=== PATIENT | female | born 1945 | race Caucasian/White ===

== ENCOUNTER 2016-10-13 15:03 | Observation (INO) | payer BC ==
--- NOTE | 2016-10-13 15:31 | EDM.PDOC ---
[id number]: LEFT SIDE OF BODY IS TINGLING Time Seen by Provider: 10/13/16 15:26 Source of Information: Reports: Patient History Limitations: Reports: No Limitations - History of Present Illness INITIAL COMMENTS - FREE TEXT/NARRATIVE: History of present illness: [] Yesterday and today sometime patient's left lateral leg started feeling numb and heavy. The numbness continued throughout the night and into today. About an hour prior to arrival patient was shopping and developed increased tingling in her left leg, left arm and left face. She was with her family member who stated that she just wasn't as fast as normal and she felt that her face was droopy. Patient is currently on Eliquis for anticoagulation for A. fib. Review of systems: As per history of present illness and below otherwise all systems reviewed and negative. Past medical history: As per history of present illness and as reviewed below otherwise noncontributory. Surgical history: As per history of present illness and as reviewed below otherwise noncontributory. Social history: No reported history of drug or alcohol abuse. Family history: As per history of present illness and as reviewed below otherwise noncontributory. Physical exam: Vital signs show blood pressure 175/75, 68, 16, 98.8 General: Well developed, well nourished in NAD HEENT: Atraumatic, normocephalic, pupils reactive, negative for conjunctival pallor or scleral icterus, mucous membranes moist, throat clear, neck supple, nontender, trachea midline. Lungs: Clear to auscultation, breath sounds equal bilaterally, chest nontender. Heart: S1S2, regular, negative for clicks, rubs, or JVD. Abdomen: Soft, nondistended, nontender. Negative for masses or hepatosplenomegaly. Negative for costovertebral tenderness. Pelvis: Stable nontender. Genitourinary: Deferred. Rectal: Deferred. Extremities: Atraumatic, negative for cords or calf pain. Neurovascular unremarkable. Neuro: Awake, alert, oriented. Cranial nerves II through XII unremarkable. No facial droop appreciated at this time Cerebellum unremarkable. Motor and sensory unremarkable throughout. Exam nonfocal. Diagnostics: [] CT negative for bleed or infarct, EKG showing normal sinus rhythm without ischemia Therapeutics: [] Patient is currently on Eliquis Impression: [] TIA Plan: [] Admit for observation Definitive disposition and diagnosis as appropriate pending reevaluation and review of above. - Related Data Allergies Allergy/AdvReac Type Severity Reaction Status Date / Time amoxicillin [From Augmentin] Allergy Hives Verified 10/13/16 17:20 barley Allergy Cannot Verified 10/13/16 17:22 Remember buckwheat Allergy Change Verified 10/13/16 17:22 Mental Status clavulanic acid Allergy Hives Verified 10/13/16 17:20 [From Augmentin] meperidine [From Demerol] Allergy Other Verified 10/13/16 17:22 wheat Allergy Other Verified 10/13/16 17:22 apple cider vinegar Allergy Vomiting Uncoded 10/13/16 17:20 black and white pepper Allergy Other Uncoded 10/13/16 17:22 tape Allergy Itching Uncoded 10/13/16 17:20 ED ROS GENERAL - Review of Systems Review Of Systems: See Below (See history of present illness) ED EXAM, NEURO - Physical Exam Exam: See Below (See history of present illness) Course - Orders/Labs/Meds Orders: Active Orders 24 hr Category Date Time Status Patient Status [ADT] Stat ADT 10/13/16 17:09 Active EKG Documentation Completion [RC] STAT Care 10/13/16 15:57 Active Saline Lock Insert [OM.PC] Stat Oth 10/13/16 15:57 Ordered Labs: Laboratory Tests 10/13/16 10/13/16 10/13/16 Range/Units 16:18 16:18 16:18 WBC 5.23 (4.0-11.0) K/uL RBC 4.22 L (4.30-5.90) M/uL Hgb 12.8 (12.0-16.0) g/dL Hct 38.6 (36.0-46.0) % MCV 91.5 (80.0-98.0) fL MCH 30.3 (27.0-32.0) pg MCHC 33.2 (31.0-37.0) g/dL RDW Std Deviation 44.6 (28.0-62.0) fl RDW Coeff of Oksana 13 (11.0-15.0) % Plt Count 227 (150-400) K/uL MPV 9.20 (7.40-12.00) fL Neut % (Auto) 59.0 (48.0-80.0) % Lymph % (Auto) 25.8 (16.0-40.0) % [place] % (Auto) 11.3 (0.0-15.0) % Eos % (Auto) 3.3 (0.0-7.0) % Baso % (Auto) 0.6 (0.0-1.5) % Neut # (Auto) 3.1 (1.4-5.7) K/uL Lymph # (Auto) 1.4 (0.6-2.4) K/uL [place] # (Auto) 0.6 (0.0-0.8) K/uL Eos # (Auto) 0.2 (0.0-0.7) K/uL Baso # (Auto) 0.0 (0.0-0.1) K/uL Nucleated RBC % 0.0 /100WBC Nucleated RBCs # 0 K/uL INR (0.86-1.11) APTT (18.6-31.3) SEC Sodium 141 (136-146) mmol/L Potassium 4.0 (3.5-5.1) mmol/L Chloride 110 (98-110) mmol/L Carbon Dioxide 22 (21-31) mmol/L BUN 19 (6.0-23.0) mg/dL Creatinine 0.7 (0.6-1.5) mg/dL Est Cr Clr Drug Dosing TNP Estimated GFR (MDRD) > 60.0 ml/min Glucose 104 (60-110) mg/dL POC Glucose (60-110) mg/dL Calcium 8.5 L (8.8-10.8) mg/dL Total Bilirubin 0.6 (0.1-1.5) mg/dL AST 21 (5-40) IU/L ALT 24 (8-54) IU/L Alkaline Phosphatase 81 (40-150) Troponin I < 0.10 (0.0-0.29) NG/ML Total Protein 6.1 (6.0-8.0) g/dL Albumin 4.1 (3.4-4.8) g/dL Globulin 2.0 (2.0-3.5) g/dL Albumin/Globulin Ratio 2.1 (1.3-2.8) 10/13/16 10/13/16 Range/Units 16:18 16:52 WBC (4.0-11.0) K/uL RBC (4.30-5.90) M/uL Hgb (12.0-16.0) g/dL Hct (36.0-46.0) % MCV (80.0-98.0) fL MCH (27.0-32.0) pg MCHC (31.0-37.0) g/dL RDW Std Deviation (28.0-62.0) fl RDW Coeff of Oksana (11.0-15.0) % Plt Count (150-400) K/uL MPV (7.40-12.00) fL Neut % (Auto) (48.0-80.0) % Lymph % (Auto) (16.0-40.0) % [place] % (Auto) (0.0-15.0) % Eos % (Auto) (0.0-7.0) % Baso % (Auto) (0.0-1.5) % Neut # (Auto) (1.4-5.7) K/uL Lymph # (Auto) (0.6-2.4) K/uL [place] # (Auto) (0.0-0.8) K/uL Eos # (Auto) (0.0-0.7) K/uL Baso # (Auto) (0.0-0.1) K/uL Nucleated RBC % /100WBC Nucleated RBCs # K/uL INR 0.96 (0.86-1.11) APTT 26.8 (18.6-31.3) SEC Sodium (136-146) mmol/L Potassium (3.5-5.1) mmol/L Chloride (98-110) mmol/L Carbon Dioxide (21-31) mmol/L BUN (6.0-23.0) mg/dL Creatinine (0.6-1.5) mg/dL Est Cr Clr Drug Dosing Estimated GFR (MDRD) ml/min Glucose (60-110) mg/dL POC Glucose 92 (60-110) mg/dL Calcium (8.8-10.8) mg/dL Total Bilirubin (0.1-1.5) mg/dL AST (5-40) IU/L ALT (8-54) IU/L Alkaline Phosphatase (40-150) Troponin I (0.0-0.29) NG/ML Total Protein (6.0-8.0) g/dL Albumin (3.4-4.8) g/dL Globulin (2.0-3.5) g/dL Albumin/Globulin Ratio (1.3-2.8) Departure - Departure Time of Disposition: 17:25 Disposition: Admitted As Inpatient 64 Condition: good Clinical Impression: TIA (transient ischemic attack) Qualifiers: Transient cerebral ischemia type: unspecified Qualified Code(s): G45.9 - Transient cerebral ischemic attack, unspecified - Discharge Information Referrals: PCP,None [Primary Care Provider] - Forms: ED Department Discharge - My Orders Last 24 Hours: My Active Orders 10/13/16 15:57 EKG Documentation Completion [RC] STAT Saline Lock Insert [OM.PC] Stat 10/13/16 17:09 Patient Status [ADT] Stat - Assessment/Plan Last 24 Hours: My Active Orders 10/13/16 15:57 EKG Documentation Completion [RC] STAT Saline Lock Insert [OM.PC] Stat 10/13/16 17:09 Patient Status [ADT] Stat
[2016-10-13 16:46] LABS: CHLORIDE,CL 110 mmol/L (98-110); SODIUM,NA 141 mmol/L (136-146)
--- NOTE | 2016-10-13 17:09 | CT ---
EXAM DATE: 10/13/16 PATIENT'S AGE: 70 Patient: FERNANDO MADERA Facility: [place], [place] Site . Site : 1945 Study: CT Head STROKE PROTOCOL [id number]/6/[id number] 4:37:55 PM Ordering Physician: Santos Michel Final Report: HISTORY: Pain, stroke, code. TECHNIQUE: The head was scanned in the axial plane at 3 mm intervals without IV contrast. Reconstructed bone windows were obtained as well as sagittal and coronal reconstructions. FINDINGS: The visualized paranasal sinuses and mastoid air cells are well aerated. The calvarium is intact. The ventricles and sulci are acceptable size for age. No intra-axial mass, edema or midline shift is identified. No extra-axial fluid collections are seen. Peter-white differentiation is preserved. IMPRESSION: No acute intracranial pathology or bleed. Report called to Dr Graham 13 October 2016 @ 1641 hours. Dictated by Cassia Herron MD @ 10/13/2016 4:41:19 PM Dictated by: Cassia Herron MD @ 10/13/2016 16:42:12 (Electronic Signature) Report Signed by Proxy. [facility]OSPITALBarrington
--- NOTE | 2016-10-13 17:12 | CR ---
EXAM DATE: 10/13/16 PATIENT'S AGE: 70 Patient: FERNANDO MADERA Facility: [place], [place] Site . Site : 1945 Study: XRay Chest [id number]/[id number] 4:47:56 PM Ordering Physician: Santos Michel Final Report: HISTORY: Possible stroke, numbness. FINDINGS: AP portable chest radiograph demonstrates a normal cardiac silhouette. Pulmonary vasculature is free of cephalization. No consolidation or pleural effusion is seen. There is scoliosis within the thoracic spine. Degenerative changes of the discs. There is degenerative changes seen within the glenohumeral joints. IMPRESSION: No acute cardiopulmonary disease. Dictated by Cassia Herron MD @ 10/13/2016 5:02:54 PM Dictated by: Cassia Herron MD @ 10/13/2016 17:02:58 (Electronic Signature) Report Signed by Proxy. KELLI
[2016-10-13] MEDS ORDERED: Ondansetron 4 MG Tab.DIS PO PRN (18:26)
[2016-10-13] MEDS ORDERED: Morphine 2 MG/ML Syringe IVPUSH PRN (18:26)
[2016-10-13] MEDS ORDERED: Acetaminophen 325 MG Tab PO PRN (18:26)
--- NOTE | 2016-10-13 18:59 | PCM.HP ---
<Aldo Sunshine - Last Filed: 10/13/16 18:54> H&P History of Present Illness - General Date of Service: 10/13/16 Admit Problem/Dx: TIA Source of Information: Patient, Other History Limitations: Reports: No Limitations - History of Present Illness Initial Comments - Free Text/Narative: 70-year-old female admitted TIA with past medical history of hypertension and A. fib rate controlled on eloquence. Patient is accompanied by friend who helps with history. Patient states that today at approximately 1445 while walking through a store she began to feel some "left leg heaviness" this was followed by left arm and left facial "tingling". Friend who was with her states that she just wasn't acting her normal self and felt that she had some left facial drooping so brought her to an emergency room. Patient states that she felt somewhat better when she got to the emergency room but did not feel herself until she was being wheeled to her hospital room at approximately 1755. Patient reports a similar episode this last Wednesday where she had left sided heaviness. She denies any chest pain, palpitation, shortness of breath prior to or after the events. Patient is taking eloquence frantically ablation for rate controlled A. fib and denies any previous history of stroke. She had been feeling well previous to these incidents and reports no nausea, vomiting, diarrhea, cough, abdominal pain or leg pain. In the emergency room there was noted to be a mild left-sided strength deficit. Chest x-ray, head CT, CBC, INR, APTT, CMP were all unremarkable except for some mild hypocalcemia at 8.5. Initial troponin was negative an ECG showed no signs of acute ischemic change. Patient was admitted for observation and further workup. Patient states that she does not follow with a physician here in [place] and works as a missionary. She's been staying near [place] for the last 2 weeks. She does see a government affairs specialist, Hemanth Blackmon in [place], [place] at the [facility]. Last time she saw him was in February or March 2016. She does have a history of hypertension, rate controlled A. fib on eloquence, and occasional asthma. Onset of Symptoms: Reports: Today - Related Data Allergies/Adverse Reactions: Allergies Allergy/AdvReac Type Severity Reaction Status Date / Time amoxicillin [From Augmentin] Allergy Hives Verified 10/13/16 17:20 barley Allergy Cannot Verified 10/13/16 17:22 Remember buckwheat Allergy Change Verified 10/13/16 17:22 Mental Status clavulanic acid Allergy Hives Verified 10/13/16 17:20 [From Augmentin] meperidine [From Demerol] Allergy Other Verified 10/13/16 17:22 wheat Allergy Other Verified 10/13/16 17:22 apple cider vinegar Allergy Vomiting Uncoded 10/13/16 17:20 black and white pepper Allergy Other Uncoded 10/13/16 17:22 tape Allergy Itching Uncoded 10/13/16 17:20 Home Medications: Home Meds Apixaban [Eliquis] 5 mg PO BID 10/13/16 [History] Calcium Carbonate [Calcium] 500 mg PO BID 10/13/16 [History] Cholecalciferol (Vitamin D3) [Vitamin D] 5,000 unit PO 1200 10/13/16 [History] Cranberry 400 mg PO DAILY 10/13/16 [History] Fish Oil/Ephraim-3 Fatty Acids [Fish Oil] 1 gm PO TID 10/13/16 [History] Furosemide 40 mg PO DAILY 10/13/16 [History] Inulin/Chromium Picolinate [Fiber Gummies] 2 each PO BEDTIME 10/13/16 [History] Lactobacillus Combo No.10 [Probiotic] 1 each PO BEDTIME 10/13/16 [History] Losartan [Cozaar] 100 mg PO DAILY 10/13/16 [History] Lutein/Minerals/Vit A,C & E [Ocuvite] 1 tab PO DAILY 10/13/16 [History] Metoprolol Succinate 50 mg PO DAILY 10/13/16 [History] Multivitamin [Daily Dajuan] 1 each PO DAILY 10/13/16 [History] Past Medical History HEENT History: Reports: Hard of Hearing Cardiovascular History: Reports: Afib, Heart Murmur, Hypertension Respiratory History: Reports: Asthma Immunologic History: Reports: None Oncologic (Cancer) History: Reports: None Dermatologic History: Reports: Eczema - Infectious Disease History Infectious Disease History: Reports: Chicken Pox, Measles, Shingles - Past Surgical History Head Surgeries/Procedures: Reports: None HEENT Surgical History: Reports: Tonsillectomy Cardiovascular Surgical History: Reports: None Respiratory Surgical History: Reports: None GI Surgical History: Reports: Appendectomy, Cholecystectomy, Hernia, Abdominal Female Surgical History: Reports: Hysterectomy Musculoskeletal Surgical History: Reports: Arthroscopic Knee Other Musculoskeletal Surgeries/Procedures:: Bilateral TKA Social & Family History - Family History Family Medical History: Noncontributory Cardiac: Reports: Bypass, Heart Failure, [place] Respiratory: Reports: Asthma Neurological: Reports: CVA Endocrine/Metabolic: Reports: Diabetes, Type I, Diabetes, type II Other Endocrine/Metabolic Family History: Unsure of type Oncologic: Reports: Cervix, Colon, Skin - Tobacco Use Smoking Status *Q: Former Smoker Years of Tobacco use: 9 Used Tobacco, but Quit: Yes Month Tobacco Last Used: 02/1971 Second Hand Smoke Exposure: No - Caffeine Use Caffeine Use: Reports: Coffee - Recreational Drug Use Recreational Drug Use: No Drug Use in Last 12 Months: No H&P Review of Systems - Review of Systems: Review Of Systems: See Below General: Denies: Fever, Chills, Fatigue, Night Sweats HEENT: Denies: Dysphasia, Sinus Congestion, Vertigo, Visual Changes Pulmonary: Denies: Shortness of Breath, Wheezing, Cough Cardiovascular: Reports: Edema. Denies: Chest Pain, Palpitations Gastrointestinal: Denies: Abdominal Pain, Black Stool, Bloody Stool, Diarrhea Genitourinary: Denies: Dysuria, Dysmenorrhea Musculoskeletal: Denies: Neck Pain, Leg Pain Skin: Denies: Cyanosis Psychiatric: Reports: Confusion Neurological: Reports: Confusion, Paresthesia. Denies: Dizziness, Headache, Seizure, Syncope Exam - Exam Exam: See Below - Vital Signs Vital Signs: Last Vital Signs Temp 36.6 C 10/13/16 16:35 Pulse 68 10/13/16 17:11 Resp 16 10/13/16 17:11 BP 175/75 H 10/13/16 17:11 Pulse Ox 95 10/13/16 17:11 Weight: 92.669 kg - Exam Quality Assessment: DVT Prophylaxis General: Alert, Oriented, Cooperative HEENT: PERRLA, Hearing Intact, Mucosa Moist & [place], Nares Patent, Normal Nasal Septum, Posterior Pharynx Clear, Conjunctiva Clear, EOMI, EACs Clear, TMs Clear Neck: Supple, Trachea Midline, 2 Lungs: Clear to Auscultation, Normal Respiratory Effort Cardiovascular: Regular Rate, Regular Rhythm, Normal S1, Normal S2, Systolic Murmur Abdomen: Normal Bowel Sounds, Soft. No: Distention, Guarding, Rigidity Back Exam: Normal Inspection, Full Range of Motion, NT Extremities: Normal Inspection, Normal Pulses, Edema. No: Calf Tenderness Peripheral Pulses: 2+: Radial (L), Radial (R), Posterior Tibial (L), Posterior Tibial (R), Dorsalis Pedis (L), Dorsalis Pedis (R) Skin: Warm, Dry, Intact Neurological: Cranial Nerves Intact, Reflexes Equal Bilateral, Strength Equal Bilateral, Normal Speech, Normal Tone, Sensation Intact. No: Focal Deficit Neuro Extensive - Mental Status: Alert, Oriented x3, Normal Mood/Affect, Normal Cognition Neuro Extensive - Motor, Sensory, Reflexes: CN II-XII Intact, Normal Gait, Normal Reflexes. No: Tongue Deviation (L), Tongue Deviation (R) Psychiatric: Alert, Normal Affect, Normal Mood - Patient Data Result Diagrams: 10/13/16 16:18 10/13/16 16:18 *Q Meaningful Use (ADM) - VTE *Q VTE Criteria *Q: - Stroke *Q Stroke Criteria *Q: - AMI *Q AMI Criteria *Q: - Problem List (1) Hypertension SNOMED Code(s): 72704299 ICD Code: I10 - ESSENTIAL (PRIMARY) HYPERTENSION Status: Chronic Priority : Medium Current Visit: Yes Qualifiers: Hypertension type: essential hypertension Qualified Code(s): I10 - Essential (primary) hypertension (2) Atrial fibrillation with normal ventricular rate SNOMED Code(s): 34045698 ICD Code: I48.91 - UNSPECIFIED ATRIAL FIBRILLATION Status: Chronic Priority: Medium Current Visit: Yes (3) TIA (transient ischemic attack) SNOMED Code(s): 459927045, 157963592 ICD Code: G45.9 - TRANSIENT CEREBRAL ISCHEMIC ATTACK, UNSPECIFIED Status: Acute Priority: High Current Visit: Yes Qualifiers: Transient cerebral ischemia type: unspecified Qualified Code(s): G45.9 - Transient cerebral ischemic attack, unspecified Problem List Initiated/Reviewed/Updated: Yes Orders Last 24hrs: Active Orders 24 hr Category Date Time Status Patient Status [ADT] Routine ADT 10/13/16 18:26 Ordered Antiembolic Devices [RC] PER UNIT ROUTINE Care 10/13/16 18:30 Ordered Oxygen Therapy [RC] PRN Care 10/13/16 18:26 Ordered Telemetry Monitoring [Cardiac Monitoring] [RC] . Care 10/13/16 18:39 Ordered DIRECTED Up With Assistance [RC] ASDIRECTED Care 10/13/16 18:26 Ordered VTE/DVT Education [RC] PER UNIT ROUTINE Care 10/13/16 18:26 Ordered Vital Signs [RC] Q4H Care 10/13/16 18:26 Ordered Heart Healthy Diet [DIET] Diet 10/13/16 Breakfast Ordered Ang Head wo Cont [MR] Stat Exams 10/13/16 18:26 Ordered Ang Neck wo Cont [MR] Stat Exams 10/13/16 18:26 Ordered Brain w wo Cont [MR] Stat Exams 10/13/16 18:26 Ordered Echo 2D wo Cont [US] Urgent Exams 10/13/16 18:26 Ordered VL Duplex Carotid Comp [US] Urgent Exams 10/13/16 18:26 Ordered BASIC METABOLIC PANEL,BMP [CHEM] AM Lab 10/14/16 05:11 Ordered CBC W/O DIFF,HEMOGRAM [HEME] AM Lab 10/14/16 05:11 Ordered CBC W/O DIFF,HEMOGRAM [HEME] AM Lab 10/15/16 05:11 Ordered CBC W/O DIFF,HEMOGRAM [HEME] AM Lab 10/16/16 05:11 Ordered LIPID PANEL [CHEM] Routine Lab 10/13/16 18:26 Ordered Acetaminophen [Tylenol] Med 10/13/16 18:26 Ordered 650 mg PO Q4H PRN Apixaban [Eliquis] Med 10/13/16 21:00 Ordered 5 mg PO BID Furosemide [Lasix] Med 10/14/16 09:00 Ordered 40 mg PO DAILY Losartan Med 10/14/16 09:00 Ordered 100 mg PO DAILY Metoprolol Succinate [Toprol XL] Med 10/14/16 09:00 Ordered 50 mg PO DAILY Morphine Med 10/13/16 18:26 Ordered 2 mg IVPUSH Q2H PRN Ondansetron [Zofran ODT] Med 10/13/16 18:26 Ordered 4 mg PO Q4H PRN atorvaSTATin [Lipitor] Med 10/13/16 21:00 Ordered 10 mg PO BEDTIME Sequential Compression Device [OM.PC] Per Unit Routine Oth 10/13/16 18:28 Ordered Resuscitation Status Routine Resus Stat 10/13/16 18:26 Ordered Medication Orders Acetaminophen (Tylenol) 650 mg PO Q4H PRN PRN Reason: Pain (Mild 1-3)/fever Apixaban (Eliquis) 5 mg PO BID LEE Atorvastatin Calcium (Lipitor) 10 mg PO BEDTIME LEE Furosemide (Lasix) 40 mg PO DAILY LEE Losartan Potassium (Cozaar) 100 mg PO DAILY LEE Metoprolol Succinate (Toprol Xl) 50 mg PO DAILY LEE Morphine Sulfate (Morphine) 2 mg IVPUSH Q2H PRN PRN Reason: Pain (severe 7-10) Stop: 10/14/16 18:29 Ondansetron HCl (Zofran Odt) 4 mg PO Q4H PRN PRN Reason: nausea, able to take PO Assessment/Plan Comment:: 70-year-old female admitted 10/13/16 for TIA with past medical history of hypertension and A. fib rate controlled on eloquence. TIA: Signs and symptoms consistent with TIA. Patient is already on eloquence for afib. CT negative for acute bleed. We'll get MRI of brain with and without contrast, MRA of head and neck, duplex carotid ultrasound, carotid echo, and lipid panel. Will start atorvastatin and place on telemetry. Will talk with neurology in AM if she recommends aspirin as well. Hypertension: Currentlly controlled will cont. home meds A-fib: Placed on telemetry. No history of recent palpations. Will cont. Elequis. VTE: SCD on Elliquis Patient does not that she would only like CPR done with no intubation but everything else done at this time. <Jair Vee - Last Filed: 10/13/16 22:05> Exam - Vital Signs Vital Signs: Last Vital Signs Temp 36.3 C 10/13/16 21:34 Pulse 57 L 10/13/16 21:34 Resp 14 10/13/16 21:34 BP 155/65 H 10/13/16 21:34 Pulse Ox 98 10/13/16 21:34 - Patient Data Result Diagrams: 10/13/16 16:18 10/13/16 16:18 *Q Meaningful Use (ADM) - VTE *Q VTE Criteria *Q: - Stroke *Q Stroke Criteria *Q: - AMI *Q AMI Criteria *Q: Orders Last 24hrs: Active Orders 24 hr Category Date Time Status Patient Status [ADT] Routine ADT 10/13/16 18:26 Active Antiembolic Devices [RC] PER UNIT ROUTINE Care 10/13/16 18:30 Active Oxygen Therapy [RC] PRN Care 10/13/16 18:26 Active Telemetry Monitoring [Cardiac Monitoring] [RC] . Care 10/13/16 18:39 Active DIRECTED Up With Assistance [RC] ASDIRECTED Care 10/13/16 18:26 Active VTE/DVT Education [RC] PER UNIT ROUTINE Care 10/13/16 18:26 Active Vital Signs [RC] Q4H Care 10/13/16 18:26 Active Heart Healthy Diet [DIET] Diet 10/13/16 Breakfast Active Ang Head wo Cont [MR] Stat Exams 10/13/16 18:26 Taken Ang Neck wo Cont [MR] Stat Exams 10/13/16 18:26 Taken Brain w wo Cont [MR] Stat Exams 10/13/16 18:26 Taken Echo 2D wo Cont [US] Urgent Exams 10/13/16 18:26 Ordered VL Duplex Carotid Comp [US] Urgent Exams 10/13/16 18:26 Ordered BASIC METABOLIC PANEL,BMP [CHEM] AM Lab 10/14/16 05:11 Ordered CBC W/O DIFF,HEMOGRAM [HEME] AM Lab 10/14/16 05:11 Ordered CBC W/O DIFF,HEMOGRAM [HEME] AM Lab 10/15/16 05:11 Ordered CBC W/O DIFF,HEMOGRAM [HEME] AM Lab 10/16/16 05:11 Ordered Acetaminophen [Tylenol] Med 10/13/16 18:26 Active 650 mg PO Q4H PRN Apixaban [Eliquis] Med 10/13/16 21:00 Active 5 mg PO BID Furosemide [Lasix] Med 10/14/16 09:00 Active 40 mg PO DAILY Losartan [Cozaar] Med 10/14/16 09:00 Active 100 mg PO DAILY Metoprolol Succinate [Toprol XL] Med 10/14/16 09:00 Active 50 mg PO DAILY Morphine Med 10/13/16 18:26 Active 2 mg IVPUSH Q2H PRN Ondansetron [Zofran ODT] Med 10/13/16 18:26 Active 4 mg PO Q4H PRN atorvaSTATin [Lipitor] Med 10/13/16 21:00 Active 10 mg PO BEDTIME Sequential Compression Device [OM.PC] Per Unit Routine Oth 10/13/16 18:28 Ordered Resuscitation Status Routine Resus Stat 10/13/16 18:26 Ordered Medication Orders Acetaminophen (Tylenol) 650 mg PO Q4H PRN PRN Reason: Pain (Mild 1-3)/fever Apixaban (Eliquis) 5 mg PO BID [facility] Last Admin: 10/13/16 21:38 Dose: 5 mg Atorvastatin Calcium (Lipitor) 10 mg PO BEDTIME LEE Last Admin: 10/13/16 21:38 Dose: 10 mg Furosemide (Lasix) 40 mg PO DAILY [facility] Losartan Potassium (Cozaar) 100 mg PO DAILY [facility] Metoprolol Succinate (Toprol Xl) 50 mg PO DAILY [facility] Morphine Sulfate (Morphine) 2 mg IVPUSH Q2H PRN PRN Reason: Pain (severe 7-10) Stop: 10/14/16 18:29 Ondansetron HCl (Zofran Odt) 4 mg PO Q4H PRN PRN Reason: nausea, able to take PO Assessment/Plan Comment:: Seen and agree. She's back to normal now. MRI/MRA done but not read yet. Follow overnight. Make sure LD < 70 EKG show NSR.
[2016-10-13] MEDS ORDERED: atorvaSTATin 10 MG Tab PO SCH (21:00)
[2016-10-13] MEDS: Apixaban 5 MG Tab PO SCH (21:38)
[2016-10-14 04:56] LABS: CHLORIDE,CL 111 mmol/L (98-110); SODIUM,NA 142 mmol/L (136-146)
[2016-10-14] MEDS ORDERED: Losartan 50 MG Tab PO SCH (09:00)
[2016-10-14] MEDS ORDERED: Metoprolol Succinate 50 MG Tab.ER PO SCH (09:00)
[2016-10-14] MEDS ORDERED: Furosemide 40 MG Tab PO SCH (09:00)
[2016-10-14] MEDS: Apixaban 5 MG Tab PO SCH (09:27)
--- NOTE | 2016-10-14 09:38 | US ---
EXAMINATION: Carotid US with cody scale and duplex imaging. HISTORY: TIA FINDINGS: Ultrasound examination of bilateral cervical carotid arteries was performed using cody scale and dup kota imaging. There is minimal scattered atheromatous plaque identified without significant stenosis on grayscale imaging. Antegrade flow is noted within the vertebrals. These are the peak velocities in cm per second (systole), right and left respectively, by a comma: CCA (common carotid artery) - 96, 111 ICA (internal carotid artery) - 66, 111 ECA (External carotid artery) - 92, 60 ICA/CCA systolic ratio Right - 0.9 Left - 1.4 IMPRESSION: No elevated velocities identified to suggest significant or greater than 50% stenosis.
--- NOTE | 2016-10-14 10:47 | MR ---
EXAM DATE: 10/13/16 PATIENT'S AGE: 70 Patient: FERNANDO MADERA Facility: [place], [place] Site . Site : 1945 Study: MRI Neck Angio Angio [id number]/6/2017 9:29:21 PM Ordering Physician: Nanda Adam Final Report: Indication: TIA Technique: MRI Head: Performed before and after IV gadolinium. MRA Head: Performed without IV contrast. MRA Neck: Performed without IV contrast. Comparison: None available. Findings: MRI Head: No evidence for acute infarct or restricted diffusion. Few tiny foci of nonenhancing T2 signal change are scattered in the cerebral white matter compatible with nondescript gliosis or minimal small vessel ischemic change. No chronic cortical infarcts identified. No hemorrhage. No intracranial mass effect. No ventricular obstruction. No evidence for abnormal gadolinium enhancement involving the brain parenchyma, meninges, calvarium or skull base. Grossly normal flow voids are maintained in the directly imaged intracranial vascular structures. The craniovertebral junction is unremarkable, with a patent foramen magnum. Both temporal bones are clear. There is slight membrane thickening in the ethmoid paranasal sinuses. MRA Head: No occlusion/filling defect or acquired arterial stenosis identified. No aneurysm or vascular malformation seen. MRA Neck: There is some patient motion artifact, but both cervical carotid systems are grossly negative. No evidence for hemodynamically significant internal carotid artery stenosis by NASCET criteria. The visualized cervical segments of both vertebral arteries are patent. The aortic arch, great vessel origins and proximal subclavian arteries are not included on this non gadolinium exam. Impression: MRI Head: 1. No acute pathology identified. No evidence for mass, hemorrhage or recent infarct. 2. Slight paranasal sinus inflammatory change. MRA Head: Negative exam. MRA Neck: 1. No evidence for hemodynamically significant ICA stenosis by NASCET criteria. 2. No evidence for carotid or vertebral artery dissection involving the visualized segments of these vessels. Dictated by Jovon Page MD @ Oct 14 2016 5:17AM (Electronic Signature) Report Signed by Proxy. KELLI
--- NOTE | 2016-10-14 10:48 | MR ---
EXAM DATE: 10/13/16 PATIENT'S AGE: 70 Patient: FERNANDO MADERA Facility: [place], [place] Site Site : 1945 Study: MRI Head Angio Angio [id number]/6/2017 9:32:05 PM Ordering Physician: MG ZAVALETA MD Final Report: Indication: TIA Technique: MRI Head: Performed before and after IV gadolinium. MRA Head: Performed without IV contrast. MRA Neck: Performed without IV contrast. Comparison: None available. Findings: MRI Head: No evidence for acute infarct or restricted diffusion. Few tiny foci of nonenhancing T2 signal change are scattered in the cerebral white matter compatible with nondescript gliosis or minimal small vessel ischemic change. No chronic cortical infarcts identified. No hemorrhage. No intracranial mass effect. No ventricular obstruction. No evidence for abnormal gadolinium enhancement involving the brain parenchyma, meninges, calvarium or skull base. Grossly normal flow voids are maintained in the directly imaged intracranial vascular structures. The craniovertebral junction is unremarkable, with a patent foramen magnum. Both temporal bones are clear. There is slight membrane thickening in the ethmoid paranasal sinuses. MRA Head: No occlusion/filling defect or acquired arterial stenosis identified. No aneurysm or vascular malformation seen. MRA Neck: There is some patient motion artifact, but both cervical carotid systems are grossly negative. No evidence for hemodynamically significant internal carotid artery stenosis by NASCET criteria. The visualized cervical segments of both vertebral arteries are patent. The aortic arch, great vessel origins and proximal subclavian arteries are not included on this non gadolinium exam. Impression: MRI Head: 1. No acute pathology identified. No evidence for mass, hemorrhage or recent infarct. 2. Slight paranasal sinus inflammatory change. MRA Head: Negative exam. MRA Neck: 1. No evidence for hemodynamically significant ICA stenosis by NASCET criteria. 2. No evidence for carotid or vertebral artery dissection involving the visualized segments of these vessels. Dictated by Jovon Page MD @ Oct 14 2016 5:18AM (Electronic Signature) Report Signed by Proxy. [facility]
--- NOTE | 2016-10-14 10:48 | MR ---
EXAM DATE: 10/13/16 PATIENT'S AGE: 70 Patient: FERNANDO MADERA Facility: [place], [place] Site . Site : 1945 Study: MRI Head W/ and W/O Cont [id number]/6/2017 9:36:21 PM Ordering Physician: Nanda Adam Final Report: Indication: TIA Technique: MRI Head: Performed before and after IV gadolinium. MRA Head: Performed without IV contrast. MRA Neck: Performed without IV contrast. Comparison: Findings: MRI Head: No evidence for acute infarct or restricted diffusion. Few tiny foci of nonenhancing T2 signal change are scattered in the cerebral white matter compatible with nondescript gliosis or minimal small vessel ischemic change. No chronic cortical infarcts identified. No hemorrhage. No intracranial mass effect. No ventricular obstruction. No evidence for abnormal gadolinium enhancement involving the brain parenchyma, meninges, calvarium or skull base. Grossly normal flow voids are maintained in the directly imaged intracranial vascular structures. The craniovertebral junction is unremarkable, with a patent foramen magnum. Both temporal bones are clear. There is slight membrane thickening in the ethmoid paranasal sinuses. MRA Head: No occlusion/filling defect or acquired arterial stenosis identified. No aneurysm or vascular malformation seen. MRA Neck: There is some patient motion artifact, but both cervical carotid systems are grossly negative. No evidence for hemodynamically significant internal carotid artery stenosis by NASCET criteria. The visualized cervical segments of both vertebral arteries are patent. The aortic arch, great vessel origins and proximal subclavian arteries are not included on this non gadolinium exam. Impression: MRI Head: 1. No acute pathology identified. No evidence for mass, hemorrhage or recent infarct. 2. Slight paranasal sinus inflammatory change. MRA Head: Negative exam. MRA Neck: 1. No evidence for hemodynamically significant ICA stenosis by NASCET criteria. 2. No evidence for carotid or vertebral artery dissection involving the visualized segments of these vessels. Dictated by Jovon Page MD @ Oct 14 2016 5:06AM (Electronic Signature) Report Signed by Proxy. KELLI
[2016-10-14] MEDS ORDERED: Gadobenate Dimeglumine 529 MG/ML 5 ML SDV IARTIC ONE (14:59)
--- NOTE | 2016-10-14 15:22 | PCM.DCSUM1 ---
Discharge Summary - Hospital Course Free Text/Narrative:: See HPI HPI Initial Comments: See HPI Brief History: See HPI and other notes - Discharge Data Discharge Date: 10/14/16 Discharge Disposition: Home, Self-Care 01 Condition: Fair - Discharge Diagnosis/Problem(s) (1) Dyslipidemia SNOMED Code(s): 323326840 ICD Code: E78.5 - HYPERLIPIDEMIA, UNSPECIFIED Status: Acute Current Visit : Yes (2) Paroxysmal atrial fibrillation SNOMED Code(s): 789704008 ICD Code: I48.0 - PAROXYSMAL ATRIAL FIBRILLATION Status: Chronic Priority : Medium Current Visit: No (3) TIA (transient ischemic attack) SNOMED Code(s): 230584245, 350807521 ICD Code: G45.9 - TRANSIENT CEREBRAL ISCHEMIC ATTACK, UNSPECIFIED Status: Acute Priority: High Current Visit: Yes Qualifiers: Transient cerebral ischemia type: unspecified Qualified Code(s): G45.9 - Transient cerebral ischemic attack, unspecified (4) Hypertension SNOMED Code(s): 89333817 ICD Code: I10 - ESSENTIAL (PRIMARY) HYPERTENSION Status: Chronic Priority : Medium Current Visit: Yes Qualifiers: Hypertension type: essential hypertension Qualified Code(s): I10 - Essential (primary) hypertension - Patient Summary/Data Consults: Consultations 10/14/16 10:21 Consult to Physical Therapy [PT Evaluation and Treatment] [CONS] Routine Recommended Follow-up Testing/Procedures: PCP in 4-6 weeks for check up and fasting lipids and cmp. Hospital Course: Neuro exam is non-focal but she still has sensation of a "heavy" left leg and sl numb. No neck/back complaints. No CONTE vision changes or other head and neck sxs. Feels great. Wants to go home. LDL 113. Goal < 70. Lipitor stopped. PT saw today and cleared. MRI/MRA nrl ECHO essentially normal carotid dopplers nrl BP sl up but she says it's usually fine. So, no changes in meds but i asked her to check bp daily with goal of <140/<90. - Patient Instructions Diet: Heart Healthy Diet Activity: As Tolerated Driving: Do Not Drive (may resume when sxs resolve. ) Showering/Bathing: May Shower - Discharge Plan Prescriptions/Med Rec: Ubidecarenone [Coenzyme Q-10] 30 mg PO DAILY #30 capsule atorvaSTATin [Lipitor] 10 mg PO BEDTIME #30 tablet Home Medications: Home Meds Apixaban [Eliquis] 5 mg PO BID 10/13/16 [History] Calcium Carbonate [Calcium] 500 mg PO BID 10/13/16 [History] Cholecalciferol (Vitamin D3) [Vitamin D] 5,000 unit PO 1200 10/13/16 [History] Cranberry 400 mg PO DAILY 10/13/16 [History] Fish Oil/[place]-3 Fatty Acids [Fish Oil 1,000 MG] 1 gm PO TID 10/13/16 [History] Furosemide 40 mg PO DAILY 10/13/16 [History] Inulin/Chromium Picolinate [Fiber Gummies] 2 each PO BEDTIME 10/13/16 [History] Lactobacillus Combo No.10 [Probiotic] 1 each PO BEDTIME 10/13/16 [History] Losartan [Cozaar] 100 mg PO DAILY 10/13/16 [History] Lutein/Minerals/Vit A,C & E [Ocuvite] 1 tab PO DAILY 10/13/16 [History] Metoprolol Succinate 50 mg PO DAILY 10/13/16 [History] Multivitamin [Daily Dajuan] 1 each PO DAILY 10/13/16 [History] Ubidecarenone [Coenzyme Q-10] 30 mg PO DAILY #30 capsule 10/14/16 [Rx] atorvaSTATin [Lipitor] 10 mg PO BEDTIME #30 tablet 10/14/16 [Rx] Patient Handouts: Transient Ischemic Attack, [id number], Atorvastatin tablets , Co-Enzyme Q10 oral dosage forms Referrals: [facility] [Outside] Renetta Cazares NP [Ordering Only Provider] - 11/13/16 11:05 am - Discharge Summary/Plan Comment DC Time >30 min.: Yes - General Info Date of Service: 10/14/16 Admission Dx/Problem (Free Text: TIA Subjective Update: Feels well. See above. - Patient Data Vitals - Most Recent: Last Vital Signs Temp 36.6 C 10/14/16 11:38 Pulse 53 L 10/14/16 11:38 Resp 22 H 10/14/16 11:38 BP 161/69 H 10/14/16 11:38 Pulse Ox 97 10/14/16 11:38 Weight - Most Recent: 92.669 kg I&O - Last 24 hours: Intake & Output 10/14/16 10/14/16 10/14/16 06:59 14:59 22:59 Intake Total 1150 Output Total 1350 Balance -200 Lab Results - Last 24 hrs: Laboratory Results - last 24 hr 10/14/16 10/14/16 Range/Units 04:23 04:23 WBC 5.97 (4.0-11.0) K/uL RBC 4.03 L (4.30-5.90) M/uL Hgb 11.9 L (12.0-16.0) g/dL Hct 36.5 (36.0-46.0) % MCV 90.6 (80.0-98.0) fL MCH 29.5 (27.0-32.0) pg MCHC 32.6 (31.0-37.0) g/dL RDW Std Deviation 44.5 (28.0-62.0) fl RDW Coeff of Oksana 13 (11.0-15.0) % Plt Count 205 (150-400) K/uL MPV 9.20 (7.40-12.00) fL Nucleated RBC % 0.0 /100WBC Nucleated RBCs # 0 K/uL Sodium 142 (136-146) mmol/L Potassium 4.2 (3.5-5.1) mmol/L Chloride 111 H (98-110) mmol/L Carbon Dioxide 26 (21-31) mmol/L BUN 15 (6.0-23.0) mg/dL Creatinine 0.6 (0.6-1.5) mg/dL Est Cr Clr Drug Dosing 76.26 mL/min Estimated GFR (MDRD) > 60.0 ml/min Glucose 94 (60-110) mg/dL Calcium 8.3 L (8.8-10.8) mg/dL Med Orders - Current: Current Medications Acetaminophen (Tylenol) 650 mg PO Q4H PRN PRN Reason: Pain (Mild 1-3)/fever Apixaban (Eliquis) 5 mg PO BID [facility] Last Admin: 10/14/16 09:27 Dose: 5 mg Atorvastatin Calcium (Lipitor) 10 mg PO BEDTIME [facility] Last Admin: 10/13/16 21:38 Dose: 10 mg Furosemide (Lasix) 40 mg PO DAILY [facility] Last Admin: 10/14/16 09:27 Dose: 40 mg Losartan Potassium (Cozaar) 100 mg PO DAILY [facility] Last Admin: 10/14/16 09:27 Dose: 100 mg Metoprolol Succinate (Toprol Xl) 50 mg PO DAILY [facility] Last Admin: 10/14/16 09:25 Dose: 50 mg Morphine Sulfate (Morphine) 2 mg IVPUSH Q2H PRN PRN Reason: Pain (severe 7-10) Stop: 10/14/16 18:29 Ondansetron HCl (Zofran Odt) 4 mg PO Q4H PRN PRN Reason: nausea, able to take PO - Exam General: Reports: alert, oriented HEENT: Reports: Pupils equal, Pupils reactive, Mucous membr. moist/pink Neck: Reports: supple. Denies: carotid bruit Lungs: Reports: Clear to auscultation, Normal respiratory effort Cardiovascular: Reports: Regular Rate, Regular Rhythm, No Murmurs Abdomen: Reports: bowel sounds present, soft, no tenderness, no distension Extremities: Reports: no edema Neurological: Reports: no new focal deficit, normal gait, normal speech, normal tone, strength equal bilateral, reflexes equal bilateral, sensation intact, cranial nerves intact Psy/Mental Status: Reports: alert, normal affect *Q Meaningful Use (DIS) - VTE *Q VTE Criteria *Q: - Stroke *Q Stroke Criteria *Q: - AMI *Q AMI Criteria *Q:
[2016-10-14 16:16] VITALS: BP 143/65
--- NOTE | 2016-10-19 12:51 | ECHO ---
EXAM DATE: 10/13/16 PATIENT'S AGE: 70 The echocardiogram report can be seen in this patient's EMR (Electronic Medical Record) in the Reports section. KELLI
== END 2016-10-14 15:00 | disposition home or self-care (01) ==
LOC: MW.ED 15:03 → MW.MS 17:33
PROVIDERS: ADMIT Internal Medicine; ATTEND Internal Medicine
DX: E78.5 Hyperlipidemia, unspecified (principal); I48.0 Paroxysmal atrial fibrillation; G45.9 Transient cerebral ischemic attack, unspecified; I10 Essential (primary) hypertension; Z88.1 Allergy status to other antibiotic agents; Z91.018 Allergy to other foods; Z88.8 Allergy status to other drugs, medicaments and biological substances; Z91.09 Other allergy status, other than to drugs and biological substances; Z79.899 Other long term (current) drug therapy; J45.909 Unspecified asthma, uncomplicated; Z90.49 Acquired absence of other specified parts of digestive tract; Z90.710 Acquired absence of both cervix and uterus; Z98.890 Other specified postprocedural states; Z87.891 Personal history of nicotine dependence
CPT/HCPCS: 36415; 70450; 70544; 70547; 70553; 71010; 80048; 80053; 80061; 82962; 84484; 85025; 85027; 85610; 85730; 93005; 93306; 93880; 99285; A9270; G0378; A9577